=== PATIENT | female | born 1995 ===

== ENCOUNTER 2016-05-29 20:49 | Observation (INO) | payer MEDICAID ==
[2016-05-29 20:58] VITALS: BP 108/52; PULSE 64; RESP 18; TEMP 98.1; O2SAT 100
[2016-05-29] MEDS ORDERED: Sodium Chloride 0.9% 1,000 ML IV STA (21:45)
--- NOTE | 2016-05-29 21:47 | ED PDOC ---
HPI: Abdomen Time Seen by Provider: 05/29/16 21:34 Chief Complaint (Nursing): Abdominal Pain Chief Complaint (Provider): abdominal pain History Per: Patient History/Exam Limitations: no limitations Onset/Duration Of Symptoms: Hrs Current Symptoms Are (Timing): Still Present Location Of Pain/Discomfort: Epigastric Associated Symptoms: Nausea, Vomiting Additional History Per: Patient Additional Complaint(s): 21 y/o female presents with epigastric abdominal pain x 3 hours. Associated nausea/vomiting. Denies fever, chest pain, shortness of breath, palpitations, changes in bowel movements, urinary symptoms. Patient seen 2 weeks ago for same , took medication without relief. Abnormal Vaginal Bleeding: No Past Medical History Reviewed: Historical Data, Nursing Documentation, Vital Signs Vital Signs: Last Vital Signs Temp 98.1 F 05/29/16 20:56 Pulse 64 05/29/16 20:56 Resp 18 05/29/16 20:56 BP 108/52 L 05/29/16 20:56 Pulse Ox 100 05/30/16 03:38 - Medical History PMH: No Chronic Diseases - Surgical History Surgical History: No Surg Hx - Family History Family History: States: Unknown Family Hx - Home Medications Home Medications: Ambulatory Orders Medication Instructions Recorded Famotidine [Pepcid] 20 mg PO Q12 #20 tab 05/15/16 Ondansetron [Zofran] 4 mg PO Q8H #10 tab 05/15/16 Esomeprazole Magnesium [Nexium] 40 mg PO DAILY #20 capsule. 05/30/16 - Allergies Allergies/Adverse Reactions: Allergies Allergy/AdvReac Type Severity Reaction Status Date / Time No Known Allergies Allergy Verified 05/15/16 12:49 Review of Systems ROS Statement: Except As Marked, All Systems Reviewed And Found Negative Gastrointestinal: Positive for: Nausea, Vomiting, Abdominal Pain Physical Exam - Reviewed Nursing Documentation Reviewed: Yes Vital Signs Reviewed: Yes - Physical Exam Appears: Positive for: Well, Non-toxic, No Acute Distress Head Exam: Positive for: ATRAUMATIC, NORMAL INSPECTION, NORMOCEPHALIC Skin: Positive for: Normal Color Eye Exam: Positive for: Normal appearance ENT: Positive for: Normal ENT Inspection Cardiovascular/Chest: Positive for: Regular Rate, Rhythm Respiratory: Positive for: Normal Breath Sounds Gastrointestinal/Abdominal: Positive for: Bowel Sounds, Soft, Tenderness ( epigastric) Back: Positive for: Normal Inspection Extremity: Positive for: Normal ROM Neurologic/Psych: Positive for: Alert, Oriented - Laboratory Results Result Diagrams: 05/29/16 22:28 05/29/16 22:28 - ECG O2 Sat by Pulse Oximetry: 100 ED OBSERVATION Discharge: Yes Date of observation admission: 05/29/16 Time of observation admission: 23:30 - Observation admission statement Patient is being placed in observation because:: abd pain, vomiting - Goals of Observation Goals of observation are:: administer analgesics, antiemetics. - Progress Note Progress Note: 05/30/16 00:27 Patient still with pain, nausea after MOrphine given; CT abd/pelvis orderd 05/30/16 03:37 EXAM: CT Abdomen and Pelvis With Intravenous Contrast. CLINICAL HISTORY: 21 years old, female; Pain; Abdominal pain; Epigastric; Prior surgery; Surgery date: 6+ months; Surgery type: ; Additional info: Epigastric pain, vomiting TECHNIQUE: Axial computed tomography images of the abdomen and pelvis with intravenous contrast. This CT exam was performed using one or more of the following dose reduction techniques : automated exposure control, adjustment of the mA and/or kV according to patient size, and/ or use of iterative reconstruction technique. Coronal and sagittal reformatted images were created and reviewed. CONTRAST: 90 mL of [id number] administered intravenously. COMPARISON: No relevant prior studies available. FINDINGS: Lower thorax: There is minimal bibasilar atelectasis. ABDOMEN: Liver: Focal fatty infiltration adjacent the falciform ligament. There are no focal liver lesions present. Gallbladder and bile ducts: Gallbladder is predominantly decompressed. No calcified stones. No ductal dilation. Pancreas: The pancreas is normal. No ductal dilation. Spleen: The spleen is normal. Adrenals: The adrenal glands are normal. Kidneys and ureters: The kidneys are normal. No hydronephrosis. Stomach and bowel: The stomach is normal. There is no evidence of intestinal obstruction. No mucosal thickening. Appendix: A normal appendix is identified. PELVIS: Bladder: The bladder is normal. Reproductive: The uterus is normal. ABDOMEN and PELVIS: Intraperitoneal space: There is trace pelvic ascites, nonspecific. There is no free intraperitoneal air. Bones/joints: See above. Soft tissues: Unremarkable. Vasculature: The aorta is normal. No abdominal aortic aneurysm. Lymph nodes: There are multiple nonspecific enlarged lymph nodes. IMPRESSION: No acute findings. 3:40 Patient states she is feeling better. Tolerated PO. Patient educated on findings, discharged with instructions to follow up GI. Continue medications previously prescribed. Diet modification. Return to ED for worsening/concerning symptoms. Disposition - Clinical Impression Clinical Impression: Gastritis - Patient ED Disposition Is Patient to be Admitted: No Counseled Patient/Family Regarding: Studies Performed, Diagnosis, Need For Followup - Disposition Disposition: Routine/Home Disposition Time: 03:38 Condition: IMPROVED
[2016-05-29 22:47] LABS: BASO % 0.3 % (0.0-2.0); EOS # 0.1 K/uL (0.0-0.7); EOS % 0.4 % (0.0-4.0); HEMATOCRIT 40.3 % (34.0-47.0); LYMPH # 2.3 K/uL (1.0-4.3); LYMPH % 16.7 % (20.0-40.0); MEAN CELL VOLUME 83.3 fl (81.0-99.0); MEAN CORPUSCULAR HGB CONC 33.6 g/dL (33.0-37.0); MEAN PLATELET VOLUME 7.6 fl (7.2-11.7); MONO # 0.5 K/uL (0.0-0.8); MONO % 3.8 % (0.0-10.0); NEUT # 10.9 K/uL (1.8-7.0); NEUT % 78.8 % (50.0-75.0); NRBC % 0.2 % (0.0-0.0); RED CELL DISTRIBUTION WIDTH 13.5 % (11.5-14.5); WHITE BLOOD COUNT 13.8 K/uL (4.8-10.8)
[2016-05-29 22:50] LABS: ALB/GLOB RATIO 1.3 (1.0-2.1); ALKALINE PHOSPHATASE 98 U/L (38-126); ALT/SGPT 45 U/L (9-52); AST/SGOT 36 U/L (14-36); BILIRUBIN,TOTAL 0.8 mg/dl (0.2-1.3); BLOOD UREA NITROGEN 10 mg/dl (7-17); CALCIUM 9.5 mg/dL (8.4-10.2); CARBON DIOXIDE 20 mmol/L (22-30); CHLORIDE 103 mmol/L (98-107); GFR AFRICAN-AMERICAN > 60; GLUCOSE,RANDOM 101 mg/dL (65-105); LIPASE 103 U/L (23-300); POTASSIUM 3.9 MMOL/L (3.6-5.0); SODIUM 140 mmol/l (132-148)
[2016-05-30] MEDS ORDERED: Iohexol 240 (50 ml) PO ONE (00:21)
[2016-05-30] MEDS ORDERED: Iohexol 300 100 ML IJ ONE (02:40)
[2016-05-30] MEDS ORDERED: Sodium Chloride 0.9% 100 ML ONE (02:40)
--- NOTE | 2016-05-30 03:30 | CT ---
EXAM: CT Abdomen and Pelvis With Intravenous Contrast. CLINICAL HISTORY: 21 years old, female; Pain; Abdominal pain; Epigastric; Prior surgery; Surgery date: 6+ months; Surgery type: ; Additional info: Epigastric pain, vomiting TECHNIQUE: Axial computed tomography images of the abdomen and pelvis with intravenous contrast. This CT exam was performed using one or more of the following dose reduction techniques: automated exposure control, adjustment of the mA and/or kV according to patient size, and/or use of iterative reconstruction technique. Coronal and sagittal reformatted images were created and reviewed. CONTRAST: 90 mL of administered intravenously. COMPARISON: No relevant prior studies available. FINDINGS: Lower thorax: There is minimal bibasilar atelectasis. ABDOMEN: Liver: Focal fatty infiltration adjacent the falciform ligament. There are no focal liver lesions present. Gallbladder and bile ducts: Gallbladder is predominantly decompressed. No calcified stones. No ductal dilation. Pancreas: The pancreas is normal. No ductal dilation. Spleen: The spleen is normal. Adrenals: The adrenal glands are normal. Kidneys and ureters: The kidneys are normal. No hydronephrosis. Stomach and bowel: The stomach is normal. There is no evidence of intestinal obstruction. No mucosal thickening. Appendix: A normal appendix is identified. PELVIS: Bladder: The bladder is normal. Reproductive: The uterus is normal. ABDOMEN and PELVIS: Intraperitoneal space: There is trace pelvic ascites, nonspecific. There is no free intraperitoneal air. Bones/joints: See above. Soft tissues: Unremarkable. Vasculature: The aorta is normal. No abdominal aortic aneurysm. Lymph nodes: There are multiple nonspecific enlarged lymph nodes. IMPRESSION: No acute findings.
== END 2016-05-30 03:46 | disposition home or self-care (01) ==
LOC: H.ER 20:49 → H.EROBSV 23:30
PROVIDERS: ADMIT Emergency Medicine; ATTEND Emergency Medicine
DX: K29.70 Gastritis, unspecified, without bleeding (principal)

== ENCOUNTER 2017-02-27 04:30 | Inpatient (IN) | payer MEDICAID ==
[2017-02-27 04:33] VITALS: BMI 30.2
[2017-02-27] MEDS ORDERED: Sodium Chloride 0.9% 1,000 ML IV STA (05:01)
[2017-02-27] MEDS ORDERED: Iohexol 240 (50 ml) PO ONE (05:19)
[2017-02-27 05:28] LABS: BASO % 0.2 % (0.0-2.0); EOS # 0.1 K/uL (0.0-0.7); EOS % 0.5 % (0.0-4.0); HEMOGLOBIN 14.4 g/dL (12.0-16.0); LYMPH # 1.9 K/uL (1.0-4.3); LYMPH % 9.2 % (20.0-40.0); MEAN CORPUSCULAR HGB CONC 32.9 g/dL (33.0-37.0); MEAN PLATELET VOLUME 7.3 fl (7.2-11.7); NEUT # 17.8 K/uL (1.8-7.0); NEUT % 85.1 % (50.0-75.0); PLATELET COUNT 333 K/uL (130-400); RBC 4.98 Mil/uL (3.80-5.20); RED CELL DISTRIBUTION WIDTH 12.7 % (11.5-14.5)
--- NOTE | 2017-02-27 05:33 | ED PDOC ---
HPI: Abdomen Time Seen by Provider: 02/27/17 04:40 Chief Complaint (Nursing): Abdominal Pain Chief Complaint (Provider): Abdominal Pain History Per: Patient History/Exam Limitations: no limitations Onset/Duration Of Symptoms: Days (x1), Sudden Onset Outside of [place] travel?: No Current Symptoms Are (Timing): Still Present Location Of Pain/Discomfort: RUQ, RLQ Associated Symptoms: Nausea, Vomiting (x10). denies: Fever, Diarrhea Additional Complaint(s): Sara Johnson is a 22 year old female, with a past medical history of gastritis , who presents to the emergency department complaining of an acute abdominal pain associated with nausea and vomiting onset since last night. She reports x10 episodes of vomiting with nausea. Patient was seen in the ER previously for similar symptoms, she had a CT done and was diagnosed with gastritis and discharged home. She denies any fever, diarrhea or other medical complaints. PMD: None provided. Past Medical History Reviewed: Historical Data, Nursing Documentation, Vital Signs Vital Signs: Last Vital Signs Temp 99.7 F H 02/27/17 21:00 Pulse 76 02/27/17 21:00 Resp 18 02/27/17 21:00 BP 105/65 02/27/17 21:00 Pulse Ox 98 02/27/17 21:00 - Medical History PMH: Gastritis Denies: Chronic Kidney Disease - Surgical History Surgical History: No Surg Hx - Family History Family History: States: Unknown Family Hx - Social History Current smoker - smoking cessation education provided: No Alcohol: None Drugs: Denies - Home Medications Home Medications: Ambulatory Orders Medication Instructions Recorded Famotidine [Pepcid] 20 mg PO Q12 #20 tab 05/15/16 Ondansetron [Zofran] 4 mg PO Q8H #10 tab 05/15/16 Esomeprazole Magnesium [Nexium] 40 mg PO DAILY #20 05/30/16 - Allergies Allergies/Adverse Reactions: Allergies Allergy/AdvReac Type Severity Reaction Status Date / Time No Known Allergies Allergy Verified 02/27/17 04:41 Review of Systems ROS Statement: Except As Marked, All Systems Reviewed And Found Negative Constitutional: Negative for: Fever Gastrointestinal: Positive for: Vomiting (x10 episodes), Abdominal Pain (Right upper quadrant-Right lower quadrant ). Negative for: Diarrhea Physical Exam - Reviewed Nursing Documentation Reviewed: Yes Vital Signs Reviewed: Yes - Physical Exam Head Exam: Positive for: ATRAUMATIC, NORMAL INSPECTION Skin: Positive for: Normal Color, Warm, Dry Eye Exam: Positive for: Normal appearance, EOMI Neck: Positive for: Normal, Painless ROM, Supple Cardiovascular/Chest: Positive for: Regular Rate, Rhythm. Negative for: Murmur Respiratory: Positive for: Normal Breath Sounds. Negative for: Respiratory Distress Gastrointestinal/Abdominal: Positive for: Tenderness (double right sided and mid epigatric) Extremity: Positive for: Normal ROM. Negative for: Deformity, Swelling Neurologic/Psych: Positive for: Alert, Oriented (x3) - Laboratory Results Result Diagrams: 02/27/17 05:25 02/27/17 05:25 - ECG O2 Sat by Pulse Oximetry: 97 (RA) Pulse Ox Interpretation: Normal Medical Decision Making Medical Decision Making: Initial Impression: abdominal pain Initial Plan: --Abd Pelvis PO and IV contrast [CT] --Beta-HCG, Quantitative --Comp Metabolic Panel --Lipase --CBC w/ differential --Pepcid 20 mg IVP --Omnipaque 50 ml PO --NS IV 1,000 ml @ 999 mls/hr --Zofran Inj 4 mg IV --reevaluation 07:00 Patient will be signed out to Dr. Santos, pending CT scan Scribe Attestation: Documented by Sy Bucio, acting as a scribe for Sarah Whitt MD Provider Scribe Attestation: All medical record entries made by the Scribe were at my direction and personally dictated by me. I have reviewed the chart and agree that the record accurately reflects my personal performance of the history, physical exam, medical decision making, and the department course for this patient. I have also personally directed, reviewed, and agree with the discharge instructions and disposition. Disposition - Clinical Impression Clinical Impression: Appendicitis - Patient ED Disposition Is Patient to be Admitted: Transfer of Care - Disposition Disposition: Transfer of Care Disposition Time: 07:00 Condition: FAIR Patient Signed Over To: Roly Santos
[2017-02-27 05:38] LABS: ALBUMIN 4.9 g/dL (3.5-5.0); ALT/SGPT 47 U/L (9-52); AST/SGOT 48 U/L (14-36); BLOOD UREA NITROGEN 17 mg/dl (7-17); CALCIUM 9.2 mg/dL (8.4-10.2); GFR AFRICAN-AMERICAN > 60; GFR NON-AFRICAN AMERICAN > 60; LIPASE 62 U/L (23-300)
[2017-02-27 06:03] LABS: ALB/GLOB RATIO 1.3 (1.0-2.1)
[2017-02-27] MEDS ORDERED: Iohexol 240 (50 ml) ONE (06:04)
[2017-02-27 06:35] LABS: BANDS 2 % (0-2); LYMPHOCYTE 12 % (20-50); MONOCYTE 5 % (0-10); NEUTROPHIL 83 % (42-75); PLATELET ESTIMATE NORMAL (NORMAL); TOTAL CELLS COUNTED 100
--- NOTE | 2017-02-27 07:25 | ED PDOC ---
- Laboratory Results Result Diagrams: 02/27/17 05:25 02/27/17 05:25 - ECG O2 Sat by Pulse Oximetry: 97 (RA) Medical Decision Making Medical Decision Makin --Patient is signed over to me by Dr. Whitt pending CT scan. Scribe Attestation: Documented by Dawson Carlson acting as a scribe for Roly Santos MD. Scribe Attestation: All medical record entries made by the Scribe were at my direction and personally dictated by me. I have reviewed the chart and agree that the record accurately reflects my personal performance of the history, physical exam, medical decision making, and the department course for this patient. I have also personally directed, reviewed, and agree with the discharge instructions and disposition. Disposition - Clinical Impression Clinical Impression: Appendicitis - POA Present On Arrival: None - Disposition Disposition: Admitted as In-Patient Disposition Time: 10:00 Condition: FAIR Forms: Gleam (Vincentian)
[2017-02-27] MEDS ORDERED: Iohexol 300 100 ML IJ ONE (09:16)
[2017-02-27] MEDS ORDERED: Sodium Chloride 0.9% 50 ML IV ONE (09:16)
--- NOTE | 2017-02-27 10:02 | CT ---
PROCEDURE: CT Abdomen and Pelvis with contrast HISTORY: abd pain right sided COMPARISON: CT scan of the abdomen pelvis dated 05/30/2016. . TECHNIQUE: Contrast dose: 95 mL Omnipaque 300 Radiation dose: Total exam DLP = 853.5 mGy-cm. This CT exam was performed using one or more of the following dose reduction techniques: Automated exposure control, adjustment of the mA and/or kV according to patient size, and/or use of iterative reconstruction technique. FINDINGS: LOWER THORAX: Unremarkable. LIVER: Hepatic steatosis. No gross lesion or ductal dilatation. GALLBLADDER AND BILE DUCTS: Unremarkable. PANCREAS: Unremarkable. No gross lesion or ductal dilatation. SPLEEN: Unremarkable. ADRENALS: Unremarkable. No mass. KIDNEYS AND URETERS: Unremarkable. No hydronephrosis. No solid mass. VASCULATURE: Unremarkable. No aortic aneurysm. BOWEL: Unremarkable. No obstruction. No gross mural thickening. APPENDIX: Dilated appendix, measuring up to 1.3 centimeter, with thickened, enhancing berger and periappendiceal hazy change. No evidence of perforation. PERITONEUM: Unremarkable. No free fluid. No free air. LYMPH NODES: Unremarkable. No enlarged lymph nodes. BLADDER: Unremarkable. REPRODUCTIVE: Unremarkable. BONES: L1 superior endplate Schmorl node. No acute fracture. OTHER FINDINGS: None. IMPRESSION: Acute appendicitis. No evidence of perforation. Findings conveyed to Dr. Santos by Dr. Xie at 9:58 a.m. on 02/27/2017.
[2017-02-27] MEDS ORDERED: Lactated Ringer's 1,000 ML IV SCH (10:30)
--- NOTE | 2017-02-27 10:35 | CP.PCM.HP ---
History of Present Illness - History of Present Illness History of Present Illness: General surgery H & P for Dr. Briana Rey, PGY-1 Pt S & E at bedside. 22F w/PMH sig for gastritis admitted for abdominal pain. Pain onset acute, intermittent, one day prior to admission at 10am, epigastric with localization around umbilicus, non radiating, worsened over time, now moderate-severe. No alleviation from Nexium. No inciting or aggravating factors identified. Admits to nausea, emesis x >10 (nb, bilious & food stuff), poor appetite, chills. Last BM at 1am on day of admission. Denies fevers, diarrhea, headache, changes in urinary habits, other complaints. In ED, afebrile with leukocytosis of 21,000. CT ab positive for dilated appendix - 1.3cm, no perforation, thickened appendix wall, and hazy periappendaceal change. PMH: Gastritis PSH: x 1 All: NKDA SH: Rare ETOH use (holidays), denies tobacco or illicit drug use LMP: 2 yrs prior to son being born- amenorrhea x 2 yrs Present on Admission - Present on Admission Any Indicators Present on Admission: No History of DVT/PE: No History of Uncontrolled Diabetes: No Urinary Catheter: No Decubitus Ulcer Present: No Review of Systems - Review of Systems All systems: reviewed and no additional remarkable complaints except - Constitutional Constitutional: Chills, Weakness. absent: Fever, Increased Appetite - EENT Eyes: absent: Change in Vision Ears: absent: Dizziness Nose/Mouth/Throat: absent: Sore Throat - Cardiovascular Cardiovascular: absent: Chest Pain, Palpitations - Respiratory Respiratory: absent: Cough - Gastrointestinal Gastrointestinal: Abdominal Pain, Nausea, Vomiting. absent: Change in Bowel Habits, Change in Stool Character, Constipation, Diarrhea, Hematemesis, Hematochezia, Melena - Genitourinary Genitourinary: absent: Change in Urinary Stream, Dysuria - Reproductive: Female Reproductive:Female: Amenorrhea - Integumentary Integumentary: absent: Rash - Neurological Neurological: Weakness - Psychiatric Psychiatric: Change in Appetite (decreased) Past Patient History - Past Social History Alcohol: None Drugs: Denies - CARDIAC Hx Cardiac Disorders: No - PULMONARY Hx Respiratory Disorders: No - NEUROLOGICAL Hx Neurological Disorder: No - HEENT Hx HEENT Problems: No - RENAL Hx Chronic Kidney Disease: No - ENDOCRINE/METABOLIC Hx Endocrine Disorders: No - HEMATOLOGICAL/ONCOLOGICAL Hx Blood Disorders: No - INTEGUMENTARY Hx Dermatological Problems: No - MUSCULOSKELETAL/RHEUMATOLOGICAL Hx Musculoskeletal Disorders: No - GASTROINTESTINAL Hx Gastritis: Yes - GENITOURINARY/GYNECOLOGICAL Hx Genitourinary Disorders: No - PSYCHIATRIC Hx Psychophysiologic Disorder: No Hx Substance Use: No - SURGICAL HISTORY Hx Section: Yes - ANESTHESIA Hx Anesthesia: Yes Hx Anesthesia Reactions: No Meds Allergies/Adverse Reactions: Allergies Allergy/AdvReac Type Severity Reaction Status Date / Time No Known Allergies Allergy Verified 02/27/17 04:41 Physical Exam - Constitutional Appears: Non-toxic, No Acute Distress - Head Exam Head Exam: ATRAUMATIC, NORMAL INSPECTION, NORMOCEPHALIC - Eye Exam Eye Exam: EOMI, Normal appearance - ENT Exam ENT Exam: Mucous Membranes Moist, Normal Exam - Neck Exam Neck exam: Positive for: Full Rom, Normal Inspection - Respiratory Exam Respiratory Exam: NORMAL BREATHING PATTERN - Cardiovascular Exam Cardiovascular Exam: REGULAR RHYTHM, +S1, +S2 - GI/Abdominal Exam GI & Abdominal Exam: Guarding (periumbilical), Soft, Tenderness (epigastric, periumbilical). absent: Distended, Firm, Rebound, Rigid - Neurological Exam Neurological exam: Alert, CN II-XII Intact, Oriented x3 - Psychiatric Exam Psychiatric exam: Normal Affect, Normal Mood - Skin Skin Exam: Dry, Intact, Normal Color, Warm Results - Vital Signs Recent Vital Signs: Last Vital Signs Temp 98.5 F 02/27/17 04:33 Pulse 64 02/27/17 04:33 Resp 20 02/27/17 04:33 BP 109/57 L 02/27/17 04:33 Pulse Ox 97 02/27/17 10:00 - Labs Result Diagrams: 02/27/17 05:25 02/27/17 05:25 Labs: Laboratory Results - last 24 hr 02/27/17 02/27/17 05:25 05:25 WBC 21.0 H D RBC 4.98 Hgb 14.4 Hct 43.8 MCV 88.0 D MCH 29.0 MCHC 32.9 L RDW 12.7 Plt Count 333 MPV 7.3 Neut % (Auto) 85.1 H Lymph % (Auto) 9.2 L [place] % (Auto) 5.0 Eos % (Auto) 0.5 Baso % (Auto) 0.2 Neut # 17.8 H Lymph # 1.9 [place] # 1.0 H Eos # 0.1 Baso # 0.0 Neutrophils % (Manual) 83 H Band Neutrophils % 2 Lymphocytes % (Manual) 12 L Monocytes % (Manual) 5 Platelet Estimate Normal Sodium 140 Potassium 3.9 Chloride 103 Carbon Dioxide 26 Anion Gap 15 BUN 17 Creatinine 0.7 Est GFR ( Amer) > 60 Est GFR (Non-Af Amer) > 60 Random Glucose 112 H Calcium 9.2 Total Bilirubin 0.7 AST 48 H ALT 47 Alkaline Phosphatase 89 Total Protein 8.6 H Albumin 4.9 Globulin 3.7 Albumin/Globulin Ratio 1.3 Lipase 62 Beta HCG, Quant < 2.39 Assessment & Plan - Assessment and Plan (Free Text) Assessment: 22F w/PMH sig for gastritis admitted for abdominal pain 2/2 acute appendicitis Plan: NPO IVF pain control SCDs Pepcid VS Q8 FU urine preg Admit to general surgery Plan for OR later today DW attending Krissy, PGY-1 - Date & Time Date: 02/27/17 Time: 10:38 Decision To Admit - Pt Status Changed To: Hospital Disposition Of: Observation - . Bed Request Type: Med/Surg Admitting Physician: Deejay Hansen
[2017-02-27] MEDS ORDERED: Piperacillin/Tazobact 3.375 GM in Sodium Chloride 0.9% 100 ML IVPB SCH (11:00)
[2017-02-27] MEDS: Lactated Ringer's 1,000 ML IV SCH ×2 (11:14→21:16)
[2017-02-27] MEDS ORDERED: Influenza Vaccine 18yr & older 0.5 ML/45 MCG SYR IM ONE (13:11)
[2017-02-27 13:36] LABS: INR 1.1 (0.9-1.2); PARTIAL THROMBOPLASTIN TIME 28.6 Seconds (25.6-37.1); PROTHROMBIN TIME 12.7 Seconds (9.8-13.1)
[2017-02-27] MEDS: Piperacillin/Tazobact 3.375 GM in Sodium Chloride 0.9% 100 ML IVPB SCH ×2 (14:57→21:58)
[2017-02-27] MEDS ORDERED: Propofol 10 mg/ml Inj (20 ML) ONE (15:03)
[2017-02-27] MEDS ORDERED: Succinylcholine 200 mg/10 ml Inj IV ONE (15:04)
[2017-02-27] MEDS ORDERED: Rocuronium 10 mg/ml (5 ml) ONE (15:04)
[2017-02-27] MEDS ORDERED: Lidocaine 1% Inj (20ml) ONE (15:05)
[2017-02-27] MEDS ORDERED: Bupivacaine 0.5% Inj(30mL) ONE (15:05)
[2017-02-27] MEDS ORDERED: Lidocaine 1% 5ml Abboject IV ONE (15:07)
[2017-02-27] MEDS ORDERED: Neostigmine Methylsulfate 3mg/3ml Syringe IV ONE (15:07)
[2017-02-27] MEDS ORDERED: Lactated Ringer's 1,000 ML IV ONE ×2 (15:08→16:40)
[2017-02-27] MEDS ORDERED: Piperacillin/Tazobact 3.375 gm Inj IVPB ONE (15:10)
[2017-02-27] MEDS ORDERED: HYDROmorphone 0.5 mg/0.5 ml ISec IVP PRN (17:41)
[2017-02-28] MEDS: Lactated Ringer's 1,000 ML IV SCH ×5 (02:45→20:17)
[2017-02-28] MEDS: Piperacillin/Tazobact 3.375 GM in Sodium Chloride 0.9% 100 ML IVPB SCH ×4 (03:28→21:45)
[2017-02-28 06:07] LABS: BASO % 0.3 % (0.0-2.0); EOS # 0.1 K/uL (0.0-0.7); EOS % 0.9 % (0.0-4.0); HEMOGLOBIN 11.6 g/dL (12.0-16.0); LYMPH # 2.2 K/uL (1.0-4.3); LYMPH % 20.7 % (20.0-40.0); MEAN CELL VOLUME 87.2 fl (81.0-99.0); MEAN CORPUSCULAR HEMOGLOBIN 29.5 pg (27.0-31.0); MEAN CORPUSCULAR HGB CONC 33.8 g/dL (33.0-37.0); MEAN PLATELET VOLUME 7.2 fl (7.2-11.7); MONO # 0.7 K/uL (0.0-0.8); MONO % 6.9 % (0.0-10.0); NEUT # 7.5 K/uL (1.8-7.0); NEUT % 71.2 % (50.0-75.0); RBC 3.94 Mil/uL (3.80-5.20); RED CELL DISTRIBUTION WIDTH 12.6 % (11.5-14.5); WHITE BLOOD COUNT 10.6 K/uL (4.8-10.8)
[2017-02-28 06:28] LABS: BLOOD UREA NITROGEN 7 mg/dl (7-17); CALCIUM 8.2 mg/dL (8.4-10.2); GFR AFRICAN-AMERICAN > 60; GFR NON-AFRICAN AMERICAN > 60
--- NOTE | 2017-02-28 09:00 | CP.PCM.PN ---
Subjective - Date & Time of Evaluation Date of Evaluation: 02/28/17 Time of Evaluation: 07:00 - Subjective Subjective: GENERAL SURGERY PROGRESS NOTE FOR DR. JAUREGUI Patient seen and examined at bedside. She is doing well. Ambulating in the halls and to the bathroom. Voiding on her own. Pain is well controlled on 2mg Morphine. She is tolerating regular diet, denies nausea or vomiting. Objective - Vital Signs/Intake and Output Vital Signs (last 24 hours): Temp Pulse Resp BP Pulse Ox 98.4 F 61 20 99/63 L 98 02/28/17 08:36 02/28/17 08:36 02/28/17 08:36 02/28/17 08:36 02/28/17 08:36 Intake and Output: 02/28/17 02/28/17 06:59 18:59 Intake Total 1880 Output Total 130 Balance 1750 - Medications Medications: Current Medications Famotidine (Pepcid) 20 mg IVP DAILY [facility] Last Admin: 02/28/17 08:27 Dose: 20 mg Piperacillin Sod/Tazobactam (Sod 3.375 gm/ Sodium Chloride) 100 mls @ 100 mls/ hr IVPB Q6 JEFF PRN Reason: Protocol Last Admin: 02/28/17 03:28 Dose: 100 mls/hr Lactated Ringer's (Lactated Ringer's) 1,000 mls @ 115 mls/hr IV .Q8H42M [facility] Last Admin: 02/28/17 05:17 Dose: Not Given Lactated Ringer's (Lactated Ringer's) 1,000 mls @ 100 mls/hr IV .Q10H [facility] Last Admin: 02/28/17 02:45 Dose: 100 mls/hr Morphine Sulfate (Morphine) 2 mg IVP Q4 PRN PRN Reason: Pain, moderate (4-7) Last Admin: 02/28/17 06:27 Dose: 2 mg Morphine Sulfate (Morphine) 4 mg IVP Q4 PRN PRN Reason: Pain, severe (8-10) Ondansetron HCl (Zofran Inj) 4 mg IVP Q4 PRN PRN Reason: Nausea/Vomiting - Labs Labs: 02/28/17 05:55 02/28/17 05:55 PT 12.7 Seconds (9.8-13.1) 02/27/17 13:00 INR 1.1 (0.9-1.2) 02/27/17 13:00 APTT 28.6 Seconds (25.6-37.1) 02/27/17 13:00 - Constitutional Appears: Well, Non-toxic, No Acute Distress - Head Exam Head Exam: ATRAUMATIC, NORMAL INSPECTION - Eye Exam Eye Exam: EOMI, Normal appearance - Respiratory Exam Respiratory Exam: NORMAL BREATHING PATTERN. absent: Respiratory Distress - Cardiovascular Exam Cardiovascular Exam: +S1, +S2 - GI/Abdominal Exam GI & Abdominal Exam: Soft, Tenderness (mild tenderness around laparoscopic incision sites and RLQ). absent: Distended, Firm, Guarding, Rigid, Rebound Additional comments: Devante drain in place with 80cc more sanguinous drainage over pulp beater - Neurological Exam Neurological Exam: Alert, Awake, Oriented x3 - Psychiatric Exam Psychiatric exam: Normal Affect, Normal Mood - Skin Skin Exam: Dry, Normal Color, Warm Assessment and Plan - Assessment and Plan (Free Text) Assessment: 22yo F with appendicitis s/p laparoscopic appendectomy POD#1 - Afebrile, VSS - Leukocytosis resolved - Hgb drop from 14.4 to 11.6 - Devante drain in place with 80cc more sanguinous drainage over pulp beater - Tolerating regular diet, ambulating - Encouraged ambulation and IS use - Will monitor one more night due to drop in H&H - Will recheck CBC in AM - Discussed plan with Dr. Tyrone Ybarra PGY-3
--- NOTE | 2017-02-28 09:00 | PCM.SURG1 ---
Surgeon's Initial Post Op Note - Surgeon's Notes Surgeon: Deejay Hansen MD [employer] Laborer: Letitia Ybarra PGY-3; Camryn Rey PGY-1 Type of Anesthesia: General Endo, Local Pre-Operative Diagnosis: Acute appendicitis Operative Findings: See op report Post-Operative Diagnosis: Acute appendicitis Operation Performed: Laparoscopic Appendectomy Specimen/Specimens Removed: Appendix Estimated Blood Loss: EBL {In ML}: 100 Blood Products Given: N/A Drains Used: Devante Post-Op Condition: Good Date of Surgery/Procedure: 02/27/17 Time of Surgery/Procedure: 17:45
[2017-03-01 00:45] VITALS: O2SAT 98
[2017-03-01] MEDS: Piperacillin/Tazobact 3.375 GM in Sodium Chloride 0.9% 100 ML IVPB SCH ×2 (04:17→09:03)
[2017-03-01] MEDS: Lactated Ringer's 1,000 ML IV SCH (06:40)
[2017-03-01 07:19] VITALS: BP 95/59; PULSE 59; TEMP 98.5
[2017-03-01 08:02] LABS: MEAN CELL VOLUME 86.9 fl (81.0-99.0); MEAN CORPUSCULAR HEMOGLOBIN 30.1 pg (27.0-31.0); MEAN CORPUSCULAR HGB CONC 34.7 g/dL (33.0-37.0); RBC 3.65 Mil/uL (3.80-5.20); RED CELL DISTRIBUTION WIDTH 12.8 % (11.5-14.5); WHITE BLOOD COUNT 7.2 K/uL (4.8-10.8)
[2017-03-01 08:27] LABS: BLOOD UREA NITROGEN 5 mg/dl (7-17); GFR AFRICAN-AMERICAN > 60; GFR NON-AFRICAN AMERICAN > 60
[2017-03-01 08:50] LABS: CALCIUM 8.3 mg/dL (8.4-10.2)
--- NOTE | 2017-03-01 09:17 | CP.PCM.DIS ---
Provider - Provider Date of Admission: 02/27/17 10:22 Attending physician: Deejay Hansen MD Primary care physician: Surgical service- Dr. Hansen Consults: None Time Spent in preparation of Discharge (in minutes): 35 Diagnosis - Discharge Diagnosis (1) S/P appendectomy Status: Acute Hospital Course - Lab Results Lab Results: Most Recent Lab Values WBC 7.2 K/uL (4.8-10.8) 03/01/17 06:48 RBC 3.65 Mil/uL (3.80-5.20) L 03/01/17 06:48 Hgb 11.0 g/dL (12.0-16.0) L 03/01/17 06:48 Hct 31.7 % (34.0-47.0) L 03/01/17 06:48 MCV 86.9 fl (81.0-99.0) 03/01/17 06:48 MCH 30.1 pg (27.0-31.0) 03/01/17 06:48 MCHC 34.7 g/dL (33.0-37.0) 03/01/17 06:48 RDW 12.8 % (11.5-14.5) 03/01/17 06:48 Plt Count 240 K/uL (130-400) 03/01/17 06:48 MPV 7.2 fl (7.2-11.7) 02/28/17 05:55 Neut % (Auto) 71.2 % (50.0-75.0) 02/28/17 05:55 Lymph % (Auto) 20.7 % (20.0-40.0) 02/28/17 05:55 Henderson % (Auto) 6.9 % (0.0-10.0) 02/28/17 05:55 Eos % (Auto) 0.9 % (0.0-4.0) 02/28/17 05:55 Baso % (Auto) 0.3 % (0.0-2.0) 02/28/17 05:55 Neut # 7.5 K/uL (1.8-7.0) H 02/28/17 05:55 Lymph # 2.2 K/uL (1.0-4.3) 02/28/17 05:55 Henderson # 0.7 K/uL (0.0-0.8) 02/28/17 05:55 Eos # 0.1 K/uL (0.0-0.7) 02/28/17 05:55 Baso # 0.0 K/uL (0.0-0.2) 02/28/17 05:55 Neutrophils % (Manual) 83 % (42-75) H 02/27/17 05:25 Band Neutrophils % 2 % (0-2) 02/27/17 05:25 Lymphocytes % (Manual) 12 % (20-50) L 02/27/17 05:25 Monocytes % (Manual) 5 % (0-10) 02/27/17 05:25 Platelet Estimate Normal (NORMAL) 02/27/17 05:25 PT 12.7 Seconds (9.8-13.1) 02/27/17 13:00 INR 1.1 (0.9-1.2) 02/27/17 13:00 APTT 28.6 Seconds (25.6-37.1) 02/27/17 13:00 Sodium 138 mmol/l (132-148) 03/01/17 06:48 Potassium 3.5 MMOL/L (3.6-5.0) L 03/01/17 06:48 Chloride 102 mmol/L (98-107) 03/01/17 06:48 Carbon Dioxide 33 mmol/L (22-30) H 03/01/17 06:48 Anion Gap 7 (10-20) L 03/01/17 06:48 BUN 5 mg/dl (7-17) L 03/01/17 06:48 Creatinine 0.8 mg/dl (0.7-1.2) 03/01/17 06:48 Est GFR ( Amer) > 60 03/01/17 06:48 Est GFR (Non-Af Amer) > 60 03/01/17 06:48 Random Glucose 83 mg/dL (65-105) 03/01/17 06:48 Calcium 8.3 mg/dL (8.4-10.2) L 03/01/17 06:48 Total Bilirubin 0.7 mg/dl (0.2-1.3) 02/27/17 05:25 AST 48 U/L (14-36) H 02/27/17 05:25 ALT 47 U/L (9-52) 02/27/17 05:25 Alkaline Phosphatase 89 U/L (38-126) 02/27/17 05:25 Total Protein 8.6 G/DL (6.3-8.2) H 02/27/17 05:25 Albumin 4.9 g/dL (3.5-5.0) 02/27/17 05:25 Globulin 3.7 gm/dL (2.2-3.9) 02/27/17 05:25 Albumin/Globulin Ratio 1.3 (1.0-2.1) 02/27/17 05:25 Lipase 62 U/L (23-300) 02/27/17 05:25 Beta HCG, Quant < 2.39 mIU/mL 02/27/17 05:25 - Hospital Course Hospital Course: 22F w/PMH sig for gastritis admitted for abdominal pain 2/2 appendicitis. Pt had leukocytosis fo 21,[address] abdomen positive for no perforation , 1.3cm dilated appendix w/thickened wall and hazy periappendaceal change. Pt was taken to OR on day of admission for laparoscopic appendectomy. Pt kept overnight for observation due to some bleeding noted intra-operatively. Pt tolerated procedure well. Pain well controlled. Tolerated diet. Labs monitored - stabilized. Pt stable and ready for discharge home with instructions to follow up with Dr. Hansen in 1 week and to take a multivitamin with iron supplementation. Devante drain was removed on day of discharge. Pt vocalized understanding of post op instructions regarding wound care. All questions answered. Diagnoses: Appendicitis s/p laparoscopic appendectomy - Date & Time of H&P Date of H&P: 02/27/17 Time of H&P: 10:32 Discharge Exam - Head Exam Head Exam: ATRAUMATIC, NORMAL INSPECTION, NORMOCEPHALIC - Eye Exam Eye Exam: EOMI, Normal appearance - ENT Exam ENT Exam: Mucous Membranes Moist, Normal Exam - Neck Exam Neck exam: Full Rom, Normal Inspection - Respiratory Exam Respiratory Exam: NORMAL BREATHING PATTERN, UNREMARKABLE - Cardiovascular Exam Cardiovascular Exam: REGULAR RHYTHM, +S1, +S2 - GI/Abdominal Exam GI & Abdominal Exam: Soft, Tenderness (over surgical incisions, appropriately), Unremarkable. absent: Distended, Firm, Guarding, Hernia Additional comments: Devante drain in superpubic area with dressing in place- some sanguinous strike through - Neurological Exam Neurological exam: Alert, CN II-XII Intact, Oriented x3 - Psychiatric Exam Psychiatric exam: Normal Affect, Normal Mood - Skin Skin Exam: Dry, Intact, Normal Color, Warm Discharge Plan - Discharge Medications Prescriptions: Multivitamin/Iron/Folic Acid [Daily Multivitamin-Iron Tablet] 1 each PO DAILY # 30 tablet - Follow Up Plan Condition: GOOD Disposition: HOME/ ROUTINE Instructions: Laparoscopic Appendectomy (DC) Additional Instructions: Please take multivitamin with iron daily- this may make you a little constipated , if it does you may drink prune juice or take an over the counter stool softener. Please return to hospital if you have any fevers, chills or excessive abdominal pain. You may take Tylenol for pain at home. If you feel that you need a stronger pain medication, please call Dr. Hansen's office for a prescription. Please call his office to make an appointment in 1 week for follow up. You may shower today when you get home. Your surgical sites have a special glue over them, do not remove it or scrub hard over them. It will fall off on it's own. Do not bathe or sit in a hot tub. No heavy lifting for 4 weeks- nothing larger than a gallon of milk. Referrals: Deejay Hansen MD [Staff Provider] -
[2017-03-01 09:24] VITALS: RESP 14
== END 2017-03-01 11:45 | disposition home or self-care (01) | DRG 883 ==
LOC: H.ER 04:30 → H.ERHOLD 10:22 → H.MEDSURG1 11:20
PROVIDERS: ADMIT Surgery; ATTEND Surgery
PROC: 0DTJ4ZZ Resection of Appendix, Percutaneous Endoscopic Approach (ICD-10-PCS; principal; 2017-02-27 15:15)
DX: K35.80 Unspecified acute appendicitis (principal); D72.829 Elevated white blood cell count, unspecified; K29.70 Gastritis, unspecified, without bleeding

== ENCOUNTER 2018-04-25 11:36 | Emergency (ER) | payer SELFPAY ==
[2018-04-25 11:41] VITALS: TEMP 97.9; O2SAT 99
[2018-04-25 11:42] VITALS: BMI 29.9
--- NOTE | 2018-04-25 13:34 | ED PDOC ---
HPI: Abdomen Time Seen by Provider: 04/25/18 12:15 Chief Complaint (Nursing): Abdominal Pain Chief Complaint (Provider): Abdominal pain History Per: Patient History/Exam Limitations: no limitations Onset/Duration Of Symptoms: Days Outside of [place] travel?: No Current Symptoms Are (Timing): Still Present Location Of Pain/Discomfort: Suprapubic Quality Of Discomfort: "Pain" Additional Complaint(s): 23yo female, with history of irregular menstrual cycle, comes to ER reporting 2 weeks of intermittent mild crampy lower abdominal pain. She denies any dysuria, hematuria, vaginal discharge or bleeding. She denies any chest pain, shortness of breath and has no other medical complaints. Patient reports irregluar menses, lmp was 02/19, has not taken a test. PMD: none provided Abnormal Vaginal Bleeding: No Last Menstral Period: 02/19/18 Past Medical History Reviewed: Historical Data, Nursing Documentation, Vital Signs Vital Signs: Last Vital Signs Temp 97.9 F 04/25/18 11:41 Pulse 79 04/25/18 11:41 Resp 16 04/25/18 11:41 BP 111/74 04/25/18 11:41 Pulse Ox 99 04/25/18 11:41 - Medical History PMH: Gastritis Denies: Chronic Kidney Disease - Surgical History Surgical History: No Surg Hx - Family History Family History: States: No Known Family Hx, Unknown Family Hx - Home Medications Home Medications: Ambulatory Orders Medication Instructions Recorded Famotidine [Pepcid] 20 mg PO Q12 #20 tab 05/15/16 Ondansetron [Zofran Tab] 4 mg PO Q8H #10 tab 05/15/16 Esomeprazole Magnesium [Nexium] 40 mg PO DAILY #20 capsule. 05/30/16 Multivitamin/Iron/Folic Acid 1 each PO DAILY #30 tablet 03/01/17 [Daily Multivitamin-Iron Tablet] Prenat 115/Iron Fum/Folic/Dss 1 each PO DAILY #30 tablet 04/25/18 [ 19 Tablet] - Allergies Allergies/Adverse Reactions: Allergies Allergy/AdvReac Type Severity Reaction Status Date / Time No Known Allergies Allergy Verified 02/27/17 04:41 Review of Systems ROS Statement: Except As Marked, All Systems Reviewed And Found Negative Cardiovascular: Negative for: Chest Pain Respiratory: Negative for: Shortness of Breath Gastrointestinal: Positive for: Abdominal Pain Genitourinary Female: Negative for: Dysuria, Hematuria, Vaginal Discharge, Vaginal Bleeding Physical Exam - Reviewed Nursing Documentation Reviewed: Yes Vital Signs Reviewed: Yes - Physical Exam Appears: Positive for: Non-toxic, No Acute Distress Head Exam: Positive for: ATRAUMATIC, NORMAL INSPECTION, NORMOCEPHALIC Skin: Positive for: Normal Color Eye Exam: Positive for: Normal appearance, EOMI, PERRL Neck: Positive for: Supple Cardiovascular/Chest: Positive for: Regular Rate, Rhythm. Negative for: Tachycardia Respiratory: Positive for: Normal Breath Sounds. Negative for: Respiratory Distress Gastrointestinal/Abdominal: Positive for: Normal Exam, Soft. Negative for: Tenderness, Guarding, Rebound Pelvic Exam: Positive for: External Exam Normal, Bimanual Exam Normal, No Cerv. Motion Tender, Other (cervical os closed). Negative for: Active Bleeding, Tender W/Cervical Motion, Tender Adnexa Back: Positive for: Normal Inspection. Negative for: L CVA Tenderness, R CVA Tenderness Extremity: Positive for: Normal ROM Neurologic/Psych: Positive for: Alert, Oriented. Negative for: Motor/Sensory Deficits - Laboratory Results Result Diagrams: 04/25/18 13:24 04/25/18 13:24 Urine POC: Positive - ECG O2 Sat by Pulse Oximetry: 99 (RA) Pulse Ox Interpretation: Normal Medical Decision Making Medical Decision Makinyo female with lower abdominal cramping x 2 weeks Plan: -- UPreg 1231 Upreg positive. Labs, US OB ordered. US reviewed and discussed with pt. stressed importance of close f/u and to return to ED if pain, sig. bleeding or other concerns. Labs and US as above, discussed with pt. Advised f/u with [facility] this week. Scribe Attestation: Documented by Marlin Salas acting as a scribe for KEVIN Deleon Provider Attestation: All medical record entries made by the Scribe were at my direction and personally dictated by me. I have reviewed the chart and agree that the record accurately reflects my personal performance of the history, physical exam, medical decision making, and the department course for this patient. I have also personally directed, reviewed, and agree with the discharge instructions and disposition. Disposition - Clinical Impression Clinical Impression: Threatened in first trimester - Patient ED Disposition Is Patient to be Admitted: No Counseled Patient/Family Regarding: Studies Performed, Diagnosis, Need For Followup - Disposition [facility] Disposition: Routine/Home Disposition Time: 16:34 Condition: STABLE Prescriptions: Prenat 115/Iron Fum/Folic/Dss [ 19 Tablet] 1 each PO DAILY #30 tablet Instructions: Threatened Miscarriage (DC) Forms: [employer] ([place]ian)
[2018-04-25 13:38] LABS: SQUAMOUS EPITHIAL 10 /hpf (0-5); URINE BACTERIA RARE (<OCC); URINE BILIRUBIN NEGATIVE (NEGATIVE); URINE BLOOD NEGATIVE (NEGATIVE); URINE CLARITY CLOUDY (Clear); URINE COLOR YELLOW (YELLOW); URINE GLUCOSE (UA) NEG (NEGATIVE); URINE LEUKOCYTE ESTERASE NEG Leu/uL (Negative); URINE PROTEIN NEGATIVE (NEGATIVE); URINE UROBILINOGEN 0.2-1.0 mg/dL (0.2-1.0)
[2018-04-25 13:50] LABS: ALB/GLOB RATIO 1.2 (1.0-2.1); ALBUMIN 4.6 g/dL (3.5-5.0); ALT/SGPT 58 U/L (9-52); AST/SGOT 44 U/L (14-36); BLOOD UREA NITROGEN 6 mg/dl (7-17); CALCIUM 9.3 mg/dL (8.4-10.2); GFR NON-AFRICAN AMERICAN > 60
[2018-04-25 13:51] LABS: BASO % 0.3 % (0.0-2.0); EOS # 0.1 K/uL (0.0-0.7); EOS % 1.6 % (0.0-4.0); HEMOGLOBIN 13.5 g/dL (12.0-16.0); LYMPH # 1.2 K/uL (1.0-4.3); LYMPH % 16.3 % (20.0-40.0); MEAN CELL VOLUME 88.2 fl (81.0-99.0); MEAN CORPUSCULAR HEMOGLOBIN 29.7 pg (27.0-31.0); MEAN CORPUSCULAR HGB CONC 33.7 g/dL (33.0-37.0); MEAN PLATELET VOLUME 7.3 fl (7.2-11.7); MONO # 0.6 K/uL (0.0-0.8); MONO % 7.5 % (0.0-10.0); NEUT # 5.6 K/uL (1.8-7.0); NEUT % 74.3 % (50.0-75.0); NRBC % 0.1 % (0.0-0.0); RBC 4.55 Mil/uL (3.80-5.20); RED CELL DISTRIBUTION WIDTH 12.6 % (11.5-14.5); WHITE BLOOD COUNT 7.5 K/uL (4.8-10.8)
--- NOTE | 2018-04-25 15:44 | US ---
Date of service: 04/25/2018 PROCEDURE: First trimester ultrasound HISTORY: pain, pos. preg test COMPARISON: None TECHNIQUE: Standard protocol for this study/examination. FINDINGS: LMP: Prior examinations from the current : TECHNIQUE: Real-time 2D imaging, duplex and color Doppler. FINDINGS: No identifiable pole. Gestational age 5 weeks based on gestational sac measurement 1.02 cm Gestational age derived from LMP: 11 weeks 1 day KIMBERLY based on LMP: 11/13/2018 KIMBERLY based on biometry: 12/26/2018 Gestational discordance approximately 6 weeks identified. Yolk sac identified Cervix: No Cervical abnormalities: Negative examination for cervical dilatation or effacement. Closed cervix measuring cm Subchorionic hemorrhage: None UTERUS: 5 x 4.4 x 7.5 cm. ADNEXA: Right: 3.2 x 3.4 x 3.7 cm. Simple cyst 2.4 x 2.6 cm. Normal Doppler arterial waveform documented. Left: 2.1 x 2.9 x 2.7 cm. Multiple subcentimeter follicles. Normal Doppler arterial waveform documented Fluid in the cul-de-sac: None IMPRESSION: Well-formed gestational sac. Gestational age based on this 5 weeks reflecting 6 weeks discordance with that noted based on LMP. Cyst right adnexa likely corpus luteum cyst.
[2018-04-25 16:46] VITALS: BP 115/78; PULSE 78; RESP 18
== END 2018-04-25 16:46 | disposition home or self-care (01) ==
LOC: H.ER 11:36
DX: O20.0 Threatened abortion (principal); Z3A.01 Less than 8 weeks gestation of pregnancy